=== PATIENT | female | born 1945 | race Hispanic/Latino ===

== ENCOUNTER 2018-01-26 10:34 | Emergency (ER) | payer SELFPAY ==
[~2018-01-26] VITALS: Ht 149.9 cm; Wt 65.8 kg
[2018-01-26] MEDS ORDERED: ASPIR 8181 MG PO (11:19)
[2018-01-26] MEDS ORDERED: unknown BP med (11:19)
== END 2018-01-26 13:44 | disposition home or self-care (01) ==
LOC: FSED 10:34
DX: M25.562 Pain in left knee (principal); M17.12 Unilateral primary osteoarthritis, left knee; M76.892 Other specified enthesopathies of left lower limb, excluding foot; Z96.652 Presence of left artificial knee joint; I10 Essential (primary) hypertension
CPT/HCPCS: 99284